=== PATIENT | male | born 1990 | race African-American/Black ===

== ENCOUNTER 2018-07-21 21:02 | Emergency (ER) | payer SELFPAY ==
[~2018-07-21] VITALS: Ht 167.6 cm; Wt 59.0 kg
[2018-07-21] MEDS ORDERED: IBUPROFEN 600MG TABLET PO STA (21:59)
[2018-07-21 23:38] VITALS: BP 113/78
== END 2018-07-21 23:45 | disposition home or self-care (01) ==
LOC: ER 21:02
DX: S39.012A Strain of muscle, fascia and tendon of lower back, initial encounter (principal); S46.911A Strain of unspecified muscle, fascia and tendon at shoulder and upper arm level, right arm, initial encounter; S16.1XXA Strain of muscle, fascia and tendon at neck level, initial encounter; V48.0XXA Car driver injured in noncollision transport accident in nontraffic accident, initial encounter; Y93.89 Activity, other specified; Y92.488 Other paved roadways as the place of occurrence of the external cause
CPT/HCPCS: 71045; 72100; 73030; 99284